=== PATIENT | male | born 1960 | race Caucasian/White ===

== ENCOUNTER 2016-09-18 20:50 | Inpatient (IN) | payer MEDICAID ==
[~2016-09-18] VITALS: Ht 182.9 cm; Wt 129.2 kg
[~2016-09-18 20:50] MED LIST: ASPI-650 PO; ATOR80TA75 PO; CARV3.122 PO; CEFD300C37 PO; DOXY100T PO; FURO-92 PO; FURO20TA3 PO; LISI2.5T PO; LISI5TAB7 PO; MAGN400T26 PO; POTA20TA14 PO; SPIR25TA PO
[2016-09-18] MEDS ORDERED: MORPHINE SULFATE 4 MG/ML, 1ML ONE ×3 (21:16→22:48)
[2016-09-18] MEDS: MORPHINE SULFATE 4 MG/ML, 1ML IVPush PRN ×2 (21:26→21:49)
[2016-09-18] MEDS ORDERED: SODIUM CHLORIDE 0.9% 1,000ML IVBOLUS ONE (21:30)
[2016-09-18] MEDS ORDERED: SODIUM CHLORIDE FLUSH 10ML SYR IVF ONE (21:30)
[2016-09-18 21:53] LABS: BLOOD UREA NITROGEN 15 mg/dL (7-18)
[2016-09-18] MEDS ORDERED: HEPARIN 5,000 UNITS/ML, 1ML ONE (21:53)
[2016-09-18] MEDS ORDERED: HEPARIN 25,000 UNITS/500ML PMX 500 ML ONE (21:54)
[2016-09-18 21:55] LABS: ASPARTATE AMINO TRANSFERASE 21 U/L (15-37)
[2016-09-18 21:58] LABS: IS PT STATUS REG ER OR PRE ER? YES
[2016-09-18] MEDS ORDERED: HEPARIN 5,000 UNITS/ML, 1ML IV ONE (22:00)
[2016-09-18] MEDS ORDERED: HEPARIN 5,000 UNITS/ML, 1ML IV PRN (22:00)
[2016-09-18] MEDS ORDERED: HEPARIN 25,000 UNITS/500ML PMX 500 ML IV PRN (22:00)
[2016-09-18] MEDS ORDERED: ASPI-496 PO (22:42)
[2016-09-18] MEDS ORDERED: MORPHINE SULFATE 4 MG/ML, 1ML IVPush ONE (23:00)
[2016-09-18] MEDS ORDERED: ONDANSETRON 2MG/ML, 2ML IVPush PRN (23:30)
[2016-09-18] MEDS ORDERED: LORazepam 2 MG/ML, 1ML IVPush PRN (23:30)
[2016-09-18] MEDS ORDERED: DOCUSATE 100 MG CAPSULE PO PRN (23:30)
[2016-09-18] MEDS ORDERED: morphine SULFATE 10 MG/ML, 1ML IVPush PRN (23:30)
[2016-09-18] MEDS ORDERED: ENALAPRILAT 1.25 MG/ML, 2ML IVPush PRN (23:30)
[2016-09-19 00:49] VITALS: BP 132/84
[2016-09-19 02:49] VITALS: BP 149/93
[2016-09-19 05:22] LABS: BLOOD UREA NITROGEN 14 mg/dL (7-18)
[2016-09-19 05:27] LABS: IS PT STATUS REG ER OR PRE ER? NO
[2016-09-19 06:56] VITALS: BP 132/80
[2016-09-19] MEDS: INSULIN REGULAR 100 UNITS/ML, 3ML VIAL SQ-INSULIN SCH ×4 (07:00→21:25)
[2016-09-19] MEDS: CARVEDILOL 3.125 MG TABLET PO SCH ×2 (08:35→21:23)
[2016-09-19] MEDS: ASPIRIN 81 MG TABLET EC PO SCH (08:35)
[2016-09-19] MEDS: FUROSEMIDE 40 MG TABLET PO SCH ×2 (08:35→21:23)
[2016-09-19] MEDS: LISINOPRIL 5 MG TABLET PO SCH (08:35)
[2016-09-19 12:25] LABS: IS PT STATUS REG ER OR PRE ER? NO
[2016-09-19 13:18] VITALS: BP 132/74
[2016-09-19] MEDS ORDERED: FENTANYL PF 100 MCG/2ML ONE ×2 (14:11→15:13)
[2016-09-19] MEDS ORDERED: LIDOCAINE 2%, 20ML ONE (14:12)
[2016-09-19] MEDS ORDERED: BIVALIRUDIN 250 MG ONE (14:12)
[2016-09-19] MEDS ORDERED: MIDAZOLAM 1 MG/ML, 5ML ONE (14:12)
[2016-09-19] MEDS ORDERED: VERAPAMIL 2.5 MG/ML, 2ML ONE (14:12)
[2016-09-19] MEDS ORDERED: HEPARIN 1,000 UNITS/ML, 10ML ONE (15:13)
[2016-09-19 19:39] VITALS: BP 153/78
[2016-09-20 01:16] VITALS: BP 146/82
[2016-09-20 05:48] LABS: BLOOD UREA NITROGEN 18 mg/dL (7-18)
[2016-09-20 06:52] VITALS: BP 113/75
[2016-09-20] MEDS: CARVEDILOL 3.125 MG TABLET PO SCH (08:16)
[2016-09-20] MEDS: FUROSEMIDE 40 MG TABLET PO SCH (08:16)
[2016-09-20] MEDS: ASPIRIN 81 MG TABLET EC PO SCH (08:16)
[2016-09-20] MEDS: INSULIN REGULAR 100 UNITS/ML, 3ML VIAL SQ-INSULIN SCH ×2 (08:17→12:12)
[2016-09-20] MEDS: LISINOPRIL 5 MG TABLET PO SCH (08:17)
[2016-09-20] MEDS ORDERED: SPIRONOLACTONE 25 MG TABLET PO SCH (09:00)
[2016-09-20] MEDS ORDERED: SPIR25TA PO (11:16)
[2016-09-20 12:59] VITALS: BP 130/74
[2016-09-20] MEDS ORDERED: CARV6.252 PO (13:59)
[2016-09-20] MEDS ORDERED: CARVEDILOL 6.25 MG TABLET PO SCH (18:00)
[2016-09-20] MEDS ORDERED: ATORVASTATIN 20 MG TABLET PO SCH (21:00)
== END 2016-09-20 13:46 | disposition home or self-care (01) | DRG 287 ==
LOC: ED 22:12 → EDIP 22:26 → 5SO 22:39 → DCLOUNGE 09-20 13:20
PROVIDERS: ADMIT Internal Medicine; ATTEND Internal Medicine
PROC: 4A023N7 Measurement of Cardiac Sampling and Pressure, Left Heart, Percutaneous Approach (ICD-10-PCS; principal; 2016-09-19)
PROC: B2111ZZ Fluoroscopy of Multiple Coronary Arteries using Low Osmolar Contrast (ICD-10-PCS; 2016-09-19)
PROC: B2151ZZ Fluoroscopy of Left Heart using Low Osmolar Contrast (ICD-10-PCS; 2016-09-19)
DX: I25.110 Atherosclerotic heart disease of native coronary artery with unstable angina pectoris (principal); I50.22 Chronic systolic (congestive) heart failure; I44.7 Left bundle-branch block, unspecified; I27.2 Other secondary pulmonary hypertension; E66.01 Morbid (severe) obesity due to excess calories; R73.9 Hyperglycemia, unspecified; D75.1 Secondary polycythemia; I34.0 Nonrheumatic mitral (valve) insufficiency; I42.9 Cardiomyopathy, unspecified; J44.9 Chronic obstructive pulmonary disease, unspecified; Z68.38 Body mass index [BMI] 38.0-38.9, adult; Z79.899 Other long term (current) drug therapy; Z79.82 Long term (current) use of aspirin; Z90.49 Acquired absence of other specified parts of digestive tract; Z87.891 Personal history of nicotine dependence
CPT/HCPCS: 36415; 71010; 80048; 80053; 80061; 82040; 82962; 83036; 83735; 83880; 84100; 84439; 84443; 84484; 85025; 85520; 93005; 93306; 93458; 99156; 99157; C1894; J0583; J1644; J2250; J3010; J3490; J7030; Q9967

== ENCOUNTER 2017-04-09 22:07 | Inpatient (IN) | payer MEDICAID ==
[~2017-04-09] VITALS: Ht 182.9 cm; Wt 124.1 kg
[~2017-04-09 22:07] MED LIST changes: +ASPI-496 PO; +ATOR-2 PO; -ATOR80TA75 PO; +CARV6.252 PO
[2017-04-09] MEDS ORDERED: SODIUM CHLORIDE FLUSH 10ML SYR IVF ONE (22:30)
[2017-04-09] MEDS ORDERED: ASPIRIN 81 MG TABLET CHEW ONE (22:43)
[2017-04-09] MEDS ORDERED: ASPIRIN 81 MG TABLET CHEW PO ONE (23:00)
[2017-04-09] MEDS ORDERED: ONDANSETRON 2MG/ML, 2ML IVPush ONE (23:00)
[2017-04-09] MEDS ORDERED: MORPHINE SULFATE 4 MG/ML, 1ML IVPush ONE (23:00)
[2017-04-09] MEDS ORDERED: OMNIPAQUE 350 MG/ML, 100ML BOTTLE ONE (23:01)
[2017-04-09] MEDS ORDERED: ONDANSETRON 2MG/ML, 2ML ONE (23:03)
[2017-04-09] MEDS ORDERED: MORPHINE SULFATE 4 MG/ML, 1ML ONE (23:03)
[2017-04-09 23:10] LABS: BASOPHILS # (AUTO) 0.03 x10^3/uL (0-0.1); BASOPHILS % (AUTO) 0 % (0-1); EOSINOPHILS # (AUTO) 0.08 x10^3/uL (0-0.4); EOSINOPHILS % (AUTO) 1 % (1-7); LYMPHOCYTES # (AUTO) 1.68 x10^3/uL (1-3.4); LYMPHOCYTES % (AUTO) 18 % (22-44); MD NO; MEAN CORPUSCULAR HEMOGLOBIN 30.4 pg (27.5-34.5); MEAN CORPUSCULAR HGB CONC 32.1 g/dL (33.2-36.2); MEAN CORPUSCULAR VOLUME 94.7 fL (81-97); MEAN PLATELET VOLUME 8.3 fL (7.4-10.4); MONOCYTES # (AUTO) 0.67 x10^3/uL (0.2-0.8); MONOCYTES % (AUTO) 7 % (2-9); NEUTROPHILS # (AUTO) 6.87 x10^3/uL (1.8-6.8); NEUTROPHILS % (AUTO) 74 % (42-75); PLATELET COUNT 201 x10^3/uL (130-400); RED BLOOD COUNT 6.35 x10^6/uL (4.38-5.82); RED CELL DISTRIBUTION WIDTH 13.9 % (9.4-14.8)
[2017-04-09 23:21] LABS: ALANINE AMINOTRANSFERASE 31 U/L (12-78); ALBUMIN 3.4 g/dL (3.4-5.0); ANION GAP 7 mmol/L (5-15); CALCIUM 8.3 mg/dL (8.5-10.1); CHLORIDE 106 mmol/L (98-107)
[2017-04-09 23:25] LABS: ALKALINE PHOSPHATASE 106 U/L (45-117); BILIRUBIN,TOTAL 0.8 mg/dL (0.2-1.0); TOTAL PROTEIN 7.6 g/dL (6.4-8.2); TROPONIN I < 0.015 ng/mL (0.000-0.045)
[2017-04-10] MEDS ORDERED: MORPHINE SULFATE 4 MG/ML, 1ML IVPush ONE (00:30)
[2017-04-10] MEDS ORDERED: PROCHLORPERAZINE 5 MG/ML, 2ML IVPush ONE (00:30)
[2017-04-10] MEDS ORDERED: MORPHINE SULFATE 4 MG/ML, 1ML ONE (00:31)
[2017-04-10] MEDS ORDERED: PROCHLORPERAZINE 5 MG/ML, 2ML ONE (00:31)
[2017-04-10 00:57] LABS: INTERNATIONAL NORMALIZED RATIO 1.03 (0.93-1.1); PARTIAL THROMBOPLASTIN TIME 30 Seconds (25-31); PROTHROMBIN TIME 10.6 Seconds (9.6-11.5)
[2017-04-10 00:58] LABS: D-DIMER < 0.19 ug/mlFEU (0.00-0.52)
[2017-04-10] MEDS ORDERED: HYDROcodone/APAP 5/325 TABLET PO PRN (01:30)
[2017-04-10] MEDS ORDERED: morphine SULFATE 10 MG/ML, 1ML IVPush PRN (01:30)
[2017-04-10] MEDS ORDERED: ACETAMINOPHEN 325 MG TABLET PO PRN (01:30)
[2017-04-10] MEDS ORDERED: POLYETHYLENE GLYCOL 17 GM PACKET PO PRN (01:30)
[2017-04-10] MEDS ORDERED: ENALAPRILAT 1.25 MG/ML, 2ML IV PRN (01:30)
[2017-04-10] MEDS ORDERED: ONDANSETRON 2MG/ML, 2ML IVPush PRN (01:30)
[2017-04-10] MEDS ORDERED: LABETALOL 5MG/ML, 20ML IVPush PRN (01:30)
[2017-04-10] MEDS ORDERED: hydrALAzine 20 MG/ML, 1ML IV PRN (01:30)
[2017-04-10] MEDS ORDERED: ENOXAPARIN 40 MG/0.4 ML SQ SCH (01:30)
[2017-04-10] MEDS ORDERED: DOCUSATE 100 MG CAPSULE PO PRN (01:30)
[2017-04-10 02:58] VITALS: BP 123/70
[2017-04-10 07:40] VITALS: BP 131/73
[2017-04-10] MEDS ORDERED: SPIRONOLACTONE 25 MG TABLET PO SCH (09:00)
[2017-04-10] MEDS ORDERED: FUROSEMIDE 40 MG TABLET PO SCH (09:00)
[2017-04-10] MEDS ORDERED: LISINOPRIL 5 MG TABLET PO SCH (09:00)
[2017-04-10] MEDS ORDERED: SENNA/DOCUSATE TABLET PO SCH (09:00)
[2017-04-10] MEDS ORDERED: CARVEDILOL 6.25 MG TABLET PO SCH (09:00)
[2017-04-10] MEDS ORDERED: ASPIRIN 81 MG TABLET EC PO SCH (09:00)
[2017-04-10] MEDS ORDERED: SODIUM CHLORIDE FLUSH 10ML SYR IVF SCH (09:00)
[2017-04-10] MEDS ORDERED: SIMV40TA PO (12:33)
[2017-04-10 13:58] VITALS: BP 121/68
== END 2017-04-10 17:34 | disposition home or self-care (01) | DRG 551 ==
LOC: ED 23:59 → SUATTDRO 04-10 01:08 → EDIP 04-10 01:27 → 5SO 04-10 02:17
PROVIDERS: ADMIT Family Medicine; ATTEND Hospitalist
DX: M54.9 Dorsalgia, unspecified (principal); I71.00 Dissection of unspecified site of aorta; J96.91 Respiratory failure, unspecified with hypoxia; D75.1 Secondary polycythemia; I50.22 Chronic systolic (congestive) heart failure; E66.01 Morbid (severe) obesity due to excess calories; I11.0 Hypertensive heart disease with heart failure; I27.20 Pulmonary hypertension, unspecified; E78.5 Hyperlipidemia, unspecified; I25.10 Atherosclerotic heart disease of native coronary artery without angina pectoris; K44.9 Diaphragmatic hernia without obstruction or gangrene; Z79.82 Long term (current) use of aspirin; I25.2 Old myocardial infarction; Z68.37 Body mass index [BMI] 37.0-37.9, adult; Z79.899 Other long term (current) drug therapy; Z87.891 Personal history of nicotine dependence
CPT/HCPCS: 36415; 70450; 71045; 71275; 74175; 80053; 83690; 84484; 85025; 85379; 85610; 85730; 93005; 96374; 96375; J1650; J2405; Q9967; J0780